=== PATIENT | male | born 1990 | race Two or more races ===

== ENCOUNTER 2019-05-14 00:05 | Emergency (ER) | payer MEDICAID ==
[~2019-05-14] VITALS: Ht 175.3 cm; Wt 82.6 kg
[2019-05-14 00:05] VITALS: BP 131/79
--- NOTE | 2019-05-14 00:40 | NUR ---
SEEN AND EXAMINED BY
--- NOTE | 2019-05-14 00:48 | NUR ---
Patient discharged to home in stable condition. Written and verbal after care instructions given. Patient verbalizes understanding of instruction.
== END 2019-05-14 00:48 | disposition home or self-care (01) ==
LOC: ER 00:05
DX: J06.9 Acute upper respiratory infection, unspecified (principal); J45.909 Unspecified asthma, uncomplicated